=== PATIENT | female | born 1975 | race Caucasian/White ===

== ENCOUNTER 2018-12-18 14:32 | Emergency (ER) | payer MEDICAID, OTHER ==
[~2018-12-18] VITALS: Ht 162.6 cm; Wt 80.0 kg
[2018-12-18 14:47] VITALS: BP 110/84
[2018-12-18] MEDS ORDERED: LORA1TAB PO (15:32)
[2018-12-18] MEDS ORDERED: NICO-687 TOP (15:32)
[2018-12-18] MEDS ORDERED: BACDS PO (15:32)
[2018-12-18] MEDS ORDERED: LIDOcaine 1% w/EPI 1:200,000 injection 10mL vial IM ONE (15:40)
[2018-12-18] MEDS ORDERED: TETanus/Pertussis (Acell)/Diphther VAC/PF (Tdap-Adult) 0.5ml syringe IM ONE (15:40)
[2018-12-18] MEDS ORDERED: LIDOcaine 1% W/epiNEPHrine 1:100,000 20ml vial IJ ONE (15:40)
== END 2018-12-18 16:24 | disposition home or self-care (01) ==
LOC: ER 14:33
DX: L02.413 Cutaneous abscess of right upper limb (principal); F15.90 Other stimulant use, unspecified, uncomplicated; F11.10 Opioid abuse, uncomplicated; F17.200 Nicotine dependence, unspecified, uncomplicated; Z56.0 Unemployment, unspecified; Z88.0 Allergy status to penicillin; Z79.2 Long term (current) use of antibiotics; Z79.899 Other long term (current) drug therapy
CPT/HCPCS: 90471; 96374; 99283

== ENCOUNTER 2018-12-22 19:56 | Emergency (ER) | payer MEDICAID, OTHER ==
[~2018-12-22] VITALS: Ht 162.6 cm; Wt 72.7 kg
[~2018-12-22 19:56] MED LIST: BACDS PO; LORA1TAB PO; NICO-687 TOP
[2018-12-22 20:10] VITALS: BP 102/67
[2018-12-22] MEDS ORDERED: buprenorphine/naloxone 8MG-2MG SUBlingual film SL STA ×2 (21:19→22:30)
[2018-12-22] MEDS ORDERED: LIDOcaine 1% w/EPI 1:200,000 injection 10mL vial IM ONE (21:20)
[2018-12-22] MEDS ORDERED: loperamide 2mg capsule PO ONE (21:20)
[2018-12-22] MEDS ORDERED: ondansetron 4mg rapidly disintigrating tab PO ONE (21:20)
[2018-12-22] MEDS ORDERED: LIDOcaine 1% W/epiNEPHrine 1:100,000 20ml vial IJ ONE (21:25)
[2018-12-22] MEDS ORDERED: ONDA4TAB6 PO (22:00)
[2018-12-22] MEDS ORDERED: LOPE2TAB25 PO (22:00)
== END 2018-12-22 22:49 | disposition home or self-care (01) ==
LOC: ER 19:56
DX: L02.413 Cutaneous abscess of right upper limb (principal); F15.10 Other stimulant abuse, uncomplicated; F11.23 Opioid dependence with withdrawal; Z56.0 Unemployment, unspecified; Z88.0 Allergy status to penicillin; Z79.899 Other long term (current) drug therapy
CPT/HCPCS: 10060; 99284

== ENCOUNTER 2019-01-07 07:58 | Emergency (ER) | payer MEDICAID, OTHER ==
[~2019-01-07] VITALS: Ht 162.6 cm; Wt 74.5 kg
[~2019-01-07 07:58] MED LIST changes: -BACDS PO; +LOPE2TAB25 PO; -LORA1TAB PO; +ONDA4TAB6 PO
[2019-01-07 09:15] LABS: BASOPHILS % (AUTO) 0.2 % (0-1); EOSINOPHILS # (AUTO) 0.2 X10'3 (0-0.9); EOSINOPHILS % (AUTO) 3.5 % (0-6); HEMATOCRIT 44.2 % (35.0-45.0); HEMOGLOBIN 14.9 g/dl (12.0-16.0); LYMPHOCYTES # (AUTO) 2.9 X10'3 (1.1-4.8); LYMPHOCYTES % (AUTO) 50.4 % (21-51); MEAN CORPUSCULAR HEMOGLOBIN 32.9 PG (27.0-31.0); MEAN CORPUSCULAR HGB CONC 33.6 g/dL (33.0-36.5); MEAN CORPUSCULAR VOLUME 97.7 FL (78-98); MEAN PLATELET VOLUME 7.4 FL (7.4-10.4); MONOCYTES # (AUTO) 0.4 X10'3 (0-0.9); MONOCYTES % (AUTO) 6.7 % (2-12); NEUTROPHILS # (AUTO) 2.3 X10'3 (1.8-7.7); NEUTROPHILS % (AUTO) 39.2 % (42-75); PLATELET COUNT 418 X10'3 (140-440); RED BLOOD COUNT 4.52 X10'6 (4.20-5.60); WHITE BLOOD COUNT 5.8 X10'3 (4.5-11.0)
[2019-01-07 09:23] LABS: ALANINE AMINOTRANSFERASE 23 U/L (12-78); ALBUMIN 3.8 G/DL (3.4-5.0); ALBUMIN/GLOBULIN RATIO 0.9 (1.1-1.5); ALKALINE PHOSPHATASE 69 IU/L (46-116); ANION GAP 12 (8-16); ASPARTATE AMINO TRANSFERASE 8 U/L (10-37); BILIRUBIN,TOTAL 0.6 MG/DL (0.1-1.0); BLOOD UREA NITROGEN 17 MG/DL (7-18); BUN/CREATININE RATIO 19.1 (6.6-38.0); CALCIUM 11.3 MG/DL (8.5-10.1); CHLORIDE 103 MMOL/L (99-107); CREATININE 0.89 MG/DL (0.40-0.90); GLUCOSE 112 MG/DL (70-104); POTASSIUM 3.9 MMOL/L (3.5-5.1); SODIUM 139 MMOL/L (135-145); TOTAL CARBON DIOXIDE 23.8 MMOL/L (24-32); eGFR 70 ML/MIN
[2019-01-07 10:40] LABS: URINE HCG NEGATIVE (NEG)
[2019-01-07 10:42] LABS: CLARITY,URINE SLIGHTLY CLOUDY (Clear); COLOR,URINE STRAW (Yellow); GLUCOSE, URINE NEGATIVE (Neg); KETONES,URINE NEGATIVE (Neg); LEUKOCYTE ESTERASE ,URINE NEGATIVE (Neg); NITRITES, URINE NEGATIVE (Neg); OCCULT BLOOD,URINE NEGATIVE (Neg); PROTEIN,URINE NEGATIVE (Neg); UA COLLECTION TYPE CLN CATCH MIDSTREAM; UROBILINOGEN,URINE 0.2 E.U/dL (0.2-1.0)
[2019-01-07 10:51] LABS: MUCUS STRANDS NONE SEEN /LPF (Neg); SQUAMOUS EPITHELIAL CELL,UR MODERATE /LPF (FEW)
[2019-01-07 10:52] LABS: BACTERIA,URINE FEW /HPF (Neg); RBC,URINE 0-2 /HPF (0-2); WBC,URINE 0-4 /HPF (0-4)
--- NOTE | 2019-01-07 11:02 | NUR ---
Float RN: patient ambulated to restroom with steady gait. Stool sample collected and sent to lab. Note stool sample hard/solid.
--- NOTE | 2019-01-07 11:34 | NUR ---
LAB ADVISED THAT THE STOOL SAMPLE WAS REJECTED/NEGATIVE FOR C. DIFF
[2019-01-07 12:16] VITALS: BP 109/64
[2019-01-07] MEDS ORDERED: methylPREDNISolone sod succ 125mg/2ml vial IV ONE (12:20)
[2019-01-07] MEDS ORDERED: PRED10TA23 PO (12:26)
== END 2019-01-07 12:37 | disposition home or self-care (01) ==
LOC: ER 07:58
DX: K50.90 Crohn's disease, unspecified, without complications (principal); F15.90 Other stimulant use, unspecified, uncomplicated; F11.90 Opioid use, unspecified, uncomplicated; Z56.0 Unemployment, unspecified; Z88.0 Allergy status to penicillin; Z79.899 Other long term (current) drug therapy
CPT/HCPCS: 36415; 80053; 81001; 81025; 85025; 85610; 96374; 99283; J2930